=== PATIENT | male | born 1960 | race Caucasian/White ===

== ENCOUNTER 2018-03-27 13:04 | Inpatient (IN) | payer MEDICARE ==
[~2018-03-27] VITALS: Ht 180.3 cm; Wt 96.2 kg
[2018-03-27] VITALS (13 sets, daily range): BP systolic 112–146; BP diastolic 69–103; Ht 180.3 cm; Wt 96.2 kg
--- NOTE | ~2018-03-27 | MORECARE ---
CASE MANAGEMENT DISCHARGE SUMMARY PATIENT: ANTWAN SIMMONS UNIT: [id number] ADM DATE: 03/27/18 AGE: 57 : 60 SEX: M ROOM/BED: D.2112 AUTHOR: BOYD SILVA PHYSICIAN: REFERRING PHYSICIAN: DIANN VALLES MD DATE OF SERVICE: 03/30/18 Discharge Plan Patient Name: ANTWAN SIMMONS [facility] [facility] 1960 Planned Disposition: Home Anticipated Discharge Date: 03/29/18 Discharge Date: 03/29/2018 Expected LOS: 2 Initial Reviewer: [id number] Initial Review Date: 03/30/2018 Generated: 03/30/18 9:39 am Patient Name: ANTWAN SIMMONS Page 88114 at 0839 All edits/amendments must be made on the electronic document DICTATION DATE: 03/30/18837 MANAGER BILINGUAL: JOESPH 03/30/18837 RPT#: [id number] DC DATE:03/29/18 STATUS: DIS IN [facility] [address] [facility] [address] END OF REPORT
[2018-03-27] MEDS ORDERED: ADIPEX-P37.5 M1 PO (13:40)
[2018-03-27] MEDS ORDERED: LIPITOR20 MG PO (13:40)
[2018-03-27] MEDS ORDERED: BENADRYL25 MG PO (13:41)
[2018-03-27] MEDS ORDERED: COZAAR100 MG PO (13:42)
[2018-03-27] MEDS ORDERED: NORCO 10-325 TA1 TAB PO (13:42)
[2018-03-27] MEDS ORDERED: NORVASC5 MG PO (13:43)
[2018-03-27] MEDS ORDERED: BAYER CHEWABLE81 MG PO (13:43)
[2018-03-27 14:39] LABS: BASOPHILS 0.2 % (0-2); EOSINOPHILS 0.7 % (0-7); HEMOGLOBIN 8.1 g/dL (13.5-17.5); IMMATURE GRANULOCYTES 0.2 % (0-5); LYMPHOCYTES 25.9 % (15-50); MCHC 32.4 g/dL (31.0-37.0); MCV 89.6 fL (80.0-100.0); MEAN PLATELET VOLUME 8.6 fL (7.4-10.4); MONOCYTES 8.1 % (2-11); NEUTROPHILS 64.9 % (40-80); PLATELET COUNT 437 10x3/uL (130-400); RBC 2.79 10x6/uL (4.20-6.10); RDW 15.2 % (11.5-14.5)
[2018-03-27 14:59] LABS: ALKALINE PHOSPHATASE 42 U/L (46-116); ALT (SGPT) 21 U/L (10-68); AMYLASE - SERUM 67 U/L (25-115); CALC OSMOLALITY 275 mosm/kg (275-300); CALCIUM 8.6 mg/dL (8.5-10.1); CARBON DIOXIDE 26.3 mmol/L (21.0-32.0); CHLORIDE - SERUM 103 mmol/L (98-107); CREATININE - SERUM 0.8 mg/dL (0.6-1.3); GLUCOSE 106 mg/dL (74-106); LIPASE 162 U/L (73-393); POTASSIUM - SERUM 4.2 mmol/L (3.5-5.1); PROTEIN - SERUM 6.7 g/dL (6.4-8.2); SODIUM 138 mmol/L (136-145); THYROID STIMULATING HORMONE 1.08 uIU/mL (0.36-3.74); UREA NITROGEN 12 mg/dL (7-18); eGFR NON AFRICAN AMERICAN > 90 mL/min (90-120)
[2018-03-27 15:39] LABS: APTT 27.9 SECONDS (22.8-39.4); INR 1.05 (0.85-1.17); PROTIME 13.3 SECONDS (11.6-15.0)
[2018-03-28] VITALS (16 sets, daily range): BP systolic 105–149; BP diastolic 77–96
[2018-03-28 03:40] LABS: BASOPHILS 0.3 % (0-2); EOSINOPHILS 1.1 % (0-7); IMMATURE GRANULOCYTES 0.1 % (0-5); LYMPHOCYTES 37.8 % (15-50); MCH 29.4 pg (26.0-34.0); MCHC 32.9 g/dL (31.0-37.0); MCV 89.3 fL (80.0-100.0); MEAN PLATELET VOLUME 8.7 fL (7.4-10.4); MONOCYTES 8.4 % (2-11); NEUTROPHILS 52.3 % (40-80); PLATELET COUNT 374 10x3/uL (130-400); WBC 7.5 10x3/uL (4.8-10.8)
[2018-03-28 03:45] LABS: HEMOGLOBIN 10.2 g/dL (13.5-17.5); RBC 3.47 10x6/uL (4.20-6.10)
[2018-03-28 03:49] LABS: CALC OSMOLALITY 273 mosm/kg (275-300); CALCIUM 8.1 mg/dL (8.5-10.1); CARBON DIOXIDE 25.1 mmol/L (21.0-32.0); CHLORIDE - SERUM 104 mmol/L (98-107); CREATININE - SERUM 0.7 mg/dL (0.6-1.3); GLUCOSE 111 mg/dL (74-106); POTASSIUM - SERUM 3.7 mmol/L (3.5-5.1); SODIUM 137 mmol/L (136-145); UREA NITROGEN 9 mg/dL (7-18); eGFR NON AFRICAN AMERICAN > 90 mL/min (90-120)
[2018-03-28 14:00] LABS: % SATURATION 7 % (15-55); IRON 28 ug/dl (35-150); TOTAL IRON BIND CAPACITY 388 ug/dl (260-445); UNSAT IRON BIND CAPACITY 360 ug/dl (150-375)
[2018-03-29 00:30] VITALS: BP 126/69
[2018-03-29 04:30] VITALS: BP 140/92
[2018-03-29 06:07] LABS: BASOPHILS 0.3 % (0-2); EOSINOPHILS 1.3 % (0-7); HEMATOCRIT 32.3 % (42.0-54.0); HEMOGLOBIN 10.6 g/dL (13.5-17.5); IMMATURE GRANULOCYTES 0.1 % (0-5); LYMPHOCYTES 33.4 % (15-50); MCH 29.2 pg (26.0-34.0); MCHC 32.8 g/dL (31.0-37.0); MEAN PLATELET VOLUME 8.8 fL (7.4-10.4); MONOCYTES 8.4 % (2-11); NEUTROPHILS 56.5 % (40-80); PLATELET COUNT 447 10x3/uL (130-400); RBC 3.63 10x6/uL (4.20-6.10); RDW 14.9 % (11.5-14.5); WBC 6.9 10x3/uL (4.8-10.8)
[2018-03-29 06:21] LABS: CALC OSMOLALITY 275 mosm/kg (275-300); CARBON DIOXIDE 28.1 mmol/L (21.0-32.0); CHLORIDE - SERUM 103 mmol/L (98-107); CREATININE - SERUM 0.8 mg/dL (0.6-1.3); GLUCOSE 94 mg/dL (74-106); POTASSIUM - SERUM 3.6 mmol/L (3.5-5.1); SODIUM 139 mmol/L (136-145); T4 THYROXIN - FREE 1.05 ng/dL (0.76-1.46); THYROID STIMULATING HORMONE 1.86 uIU/mL (0.36-3.74); UREA NITROGEN 7 mg/dL (7-18); eGFR NON AFRICAN AMERICAN > 90 mL/min (90-120)
[2018-03-29 07:56] VITALS: BP 111/75
[2018-03-29 11:53] VITALS: BP 125/80
[2018-03-29] MEDS ORDERED: PROTONIX40 MG PO (13:59)
[2018-03-29 16:14] VITALS: BP 135/75
[2018-03-31 07:25] LABS: FOLATE (FOLIC ACID) - SERUM 7.3 ng/mL (>3.0)
== END 2018-03-29 17:39 | disposition home or self-care (01) | DRG 381 ==
LOC: D.ICU 13:04 → D.M2 03-28 16:39
PROVIDERS: Family Medicine; Internal Medicine Gastroenterology; Internal Medicine Nephrology
PROC: 0DB68ZX Excision of Stomach, Via Natural or Artificial Opening Endoscopic, Diagnostic (ICD-10-PCS; principal; 2018-03-27 15:30)
PROC: 0DJD8ZZ Inspection of Lower Intestinal Tract, Via Natural or Artificial Opening Endoscopic (ICD-10-PCS; 2018-03-29)
DX: K22.11 Ulcer of esophagus with bleeding (principal); D62 Acute posthemorrhagic anemia; K44.9 Diaphragmatic hernia without obstruction or gangrene; K29.00 Acute gastritis without bleeding; K29.80 Duodenitis without bleeding; K59.00 Constipation, unspecified; I10 Essential (primary) hypertension; K64.8 Other hemorrhoids; Z87.891 Personal history of nicotine dependence

== ENCOUNTER 2018-07-06 12:29 | Emergency (ER) | payer MEDICARE ==
[~2018-07-06] VITALS: Ht 180.3 cm; Wt 96.8 kg
[~2018-07-06 12:29] MED LIST: ADIPEX-P37.5 M1 PO; BAYER CHEWABLE81 MG PO; BENADRYL25 MG PO; COZAAR100 MG PO; LIPITOR20 MG PO; NORCO 10-325 TA1 TAB PO; NORVASC5 MG PO; PROTONIX40 MG PO
[2018-07-06 12:45] VITALS: Ht 180.3 cm; Wt 96.8 kg
[2018-07-06] MEDS ORDERED: HYDROCODON-ACE1 EAC2 PO (15:51)
[2018-07-06 15:55] VITALS: BP 149/97
== END 2018-07-06 15:57 | disposition home or self-care (01) ==
LOC: D.ER 12:29
DX: K42.9 Umbilical hernia without obstruction or gangrene (principal)

== ENCOUNTER 2018-07-31 07:35 | Day surgery (SDC) | payer MEDICARE ==
[2018-07-30 16:00] LABS: BASOPHILS 0.4 % (0-2); EOSINOPHILS 1.1 % (0-7); HEMATOCRIT 43.8 % (42.0-54.0); HEMOGLOBIN 14.3 g/dL (13.5-17.5); IMMATURE GRANULOCYTES 0.1 % (0-5); LYMPHOCYTES 32.9 % (15-50); MCH 25.4 pg (26.0-34.0); MCHC 32.6 g/dL (31.0-37.0); MCV 77.9 fL (80.0-100.0); MEAN PLATELET VOLUME 9.2 fL (7.4-10.4); MONOCYTES 9.6 % (2-11); NEUTROPHILS 55.9 % (40-80); PLATELET COUNT 408 10x3/uL (130-400); RBC 5.62 10x6/uL (4.20-6.10); RDW 18.5 % (11.5-14.5); WBC 7.5 10x3/uL (4.8-10.8)
[2018-07-30 16:15] LABS: CALC OSMOLALITY 278 mosm/kg (275-300); CALCIUM 8.8 mg/dL (8.5-10.1); CARBON DIOXIDE 29.7 mmol/L (21.0-32.0); CHLORIDE - SERUM 103 mmol/L (98-107); CREATININE - SERUM 0.9 mg/dL (0.6-1.3); GLUCOSE 101 mg/dL (74-106); SODIUM 140 mmol/L (136-145); UREA NITROGEN 13 mg/dL (7-18); eGFR NON AFRICAN AMERICAN > 90 mL/min (90-120)
[~2018-07-31] VITALS: Ht 180.3 cm; Wt 97.5 kg
--- NOTE | ~2018-07-31 | OP ---
PATIENT NAME: ANTWAN SIMMONS MEDICAL RECORD: [id number] :60 LOCATION:D.OPS ADMISSION DATE: SURGEON: SERENA SHIN MD DATE OF OPERATION: 07/31/2018 PREOPERATIVE DIAGNOSES: 1. Ventral incisional hernia. 2. Hypertension. 3. Hypercholesterolemia. POSTOPERATIVE DIAGNOSES: 1. Ventral incisional hernia. 2. Hypertension. 3. Hypercholesterolemia. PROCEDURE: Ventral hernia repair with 4.[address] mesh. SURGEON: Serena Shin MD REPORT OF PROCEDURE: The patient's abdomen was prepped and draped in sterile fashion. A semicircular incision was made on the inferior aspect of the umbilicus. Electrocautery was used to dissect through the subcutaneous tissues and the umbilical stalk. Upon doing this, we penetrated into the hernia sac. The hernia sac was transected all the way down to the fascial edges. The hernia defect was approximately 2 cm in greatest diameter. We dissected the fatty tissue off of the fascia anteriorly and posteriorly. Once we did this, then a 4.[address] mesh was inserted and sutured down on all 4 sides using interrupted 0 Prolenes. The mesh was then irrigated out with normal saline. We closed the fascia over top of this mesh transversely using a running 0 Vicryl. The umbilicus was tacked down using a single interrupted 3-0 Vicryl and the subcutaneous tissues were reapproximated with interrupted 3-0 Vicryl. The skin incision was closed with running subcutaneous 5-0 Monocryl. The wounds were then infused with 10 mL of 0.25% Marcaine with epinephrine and dressed appropriately. COMPLICATIONS: None. CONDITION: Stable. ANESTHESIA: General endotracheal and local. BLOOD LOSS: Minimal. TRANSINT:[id number] Voice Confirmation ID: [id number] DOCUMENT ID: [id number] SERENA SHIN MD CC: [id number] DICTATION DATE: 07/31/18 1109 [employer] POL[employer] GOLD WHEEL: 07/31/18 [address] [place] [address]
[~2018-07-31 07:35] MED LIST changes: +HYDROCODON-ACE1 EAC2 PO
[2018-07-31 08:34] VITALS: BP 142/86; Ht 180.3 cm; Wt 97.5 kg
[2018-07-31] MEDS ORDERED: PERCOCET 5-3251 TAB PO (11:05)
--- NOTE | 2018-07-31 11:28 | NUR ---
OPA IN AIRWAY ON ADMIT
--- NOTE | 2018-07-31 12:56 | NUR ---
PATIENT AMBULATES TO BATHROOM AND VOIDS LARGE AMOUNT IN TOILET WITHOUT DIFFICULTY. PIV DC'D WITH TIP INTACT. PATIENT DRESSING IN PERSONAL CLOTHING
--- NOTE | 2018-07-31 13:10 | NUR ---
DISCHARGED HOME VIA WHEELCHAIR TO PRIVATE VEHICLE WITH FAMILY
== END 2018-07-31 13:10 | disposition home or self-care (01) ==
LOC: D.OPS 07:35
PROVIDERS: ATTEND Surgery
DX: K43.2 Incisional hernia without obstruction or gangrene (principal); I10 Essential (primary) hypertension; E78.00 Pure hypercholesterolemia, unspecified; Z01.812 Encounter for preprocedural laboratory examination